=== PATIENT | male | born 1965 | race Caucasian/White ===

== ENCOUNTER 2016-11-21 05:20 | Inpatient (IN) | payer BC ==
[2016-11-20 09:54] VITALS: BMI 27.7
--- NOTE | 2016-11-20 17:29 | PREOPHP ---
DATE OF ADMISSION: 11/21/2016 Patient to have surgery with Dr. Jorge Leo on 11/21/2016. REASON FOR CONSULTATION: Consultation requested by Dr. Jorge Leo for medical evaluation and clearance of a 51-year-old gentleman about to undergo surgery for degenerative joint disease of his right hip. Thank you, Dr. Leo, for participating in the care of our patient. HISTORY OF PRESENT ILLNESS: Maico Blanco is a 51-year-old gentleman who recently had total shoulder replacement on the left, currently being admitted for a total hip replacement on the right side He did have an ACL repair on the right side as well, and his left hip replaced. His right hip has been bothering him and he being admitted for symptomatic right hip degenerative joint disease. He has had no prior medical hospitalizations. He has fractured a wrist, but does not remember which one. ALLERGIES: ALLERGIC TO NO MEDICATIONS, HAS NO KNOWN ALLERGIES. MEDICATIONS Takes no chronic medications. SOCIAL HISTORY: The patient is single, has 3 children. Does not smoke. Alcohol socially. Does drink coffee. 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 FAMILY HISTORY: Father is 77. Mother is 74. Father has hypertension. Mother is healthy. Two sisters are in good health. There is remote history of diabetes and hypertension. No heart, cancer or stroke. REVIEW OF SYSTEMS HEENT: Denies any significant headaches. CARDIORESPIRATORY: Denies any chest pain or shortness of breath. GASTROINTESTINAL: No melena or hematemesis. GENITOURINARY: No urgency, frequency. MUSCULOSKELETAL: Positive for right hip pain. NEUROPSYCHIATRIC: Unremarkable. GENERAL HEALTH: As above. PHYSICAL EXAMINATION: VITAL SIGNS: The patient's blood pressure was 130/80, pulse 60 and regular, respirations 18, temperature 98, height 5 feet 11 inches, weight 194 pounds. GENERAL: The patient was noted to be a well-developed, well-nourished male in no apparent acute distress, oriented to time, place, and person. HEAD, EARS, EYES, NOSE AND THROAT: Head was atraumatic. Eyes: Pupils were equal, reactive to light and accommodation. Fundi were benign. Tympanic membranes were unremarkable. Nose was negative. Mouth was unremarkable. Fair oral hygiene was present. NECK: Supple without any rigidity. Trachea was midline. Thyroid was unremarkable. Neck veins were flat. Carotid pulses were equal. BACK: Unremarkable. CHEST: Symmetrical. BREASTS AND AXILLARY: Did not reveal any masses. LUNGS: Clear to percussion and auscultation. HEART: PMI is fifth intercostal space at the midclavicular line. Regular sinus rhythm was noted. No significant murmurs, rubs, or gallops being elicited. ABDOMEN: Soft, good bowel sounds were noted. No significant organomegaly, masses, or tenderness. GENITALIA: Normal male external genitalia. RECTAL AND PROSTATIC: Exam per PCP. EXTREMITIES: Not revealing clubbing, edema or cyanosis. Scar was noted the in left shoulder ____ from prior shoulder replacement, peripheral pulses were physiologic. SKIN: Moist and warm without any eruptions. No gross lymphadenopathy was noted. NEUROLOGIC: Grossly intact. IMPRESSION: 1. Degenerative joint disease, right hip. 2. Status post total hip replacement on the left. 3. Status post total shoulder replacement on the left. 4. Degenerative joint disease. 5. Stable health. DISCUSSION: Review of laboratory and other data revealed the following: The patient's chemistries including electrolytes, glucose, BUN and creatinine and liver function tests were normal. The patient's CBC, UA, PT, PTT, bladder scan , EKG and chest x-ray were normal. His EKG revealed some nonspecific changes which were unchanged from prior EKG without any acute changes. His x-ray was negative as well. Dr. Leo, I see no contraindication in this patient undergoing current proposed surgery under desired form of anesthesia and will be more than happy to follow him along with you during his stay at [facility]. Thank you again, Dr. Leo, for allowing us to participate in the care of this patient. Dictated By: JOSH AREVALO MD SS/NTS Conf#: [id number] DID#: [id number] CC: JORGE LEO MD;*EndCC* MTDD
[~2016-11-21] VITALS: Ht 180.3 cm; Wt 88.2 kg
[2016-11-21] VITALS (30 sets, daily range): BP systolic 81–109; BP diastolic 36–58; PULSE 52–76; RESP 11–20; Ht 180.3 cm; Wt 88.2 kg
[2016-11-21] MEDS ORDERED: VANCOMYCIN 1 GM (PMX) 250 ML IVPB ONE (06:00)
[2016-11-21] MEDS ORDERED: oxyCODONE (CR) 10 MG TAB [oxyCONTIN] PO ONE (06:00)
[2016-11-21] MEDS ORDERED: TRANEXAMIC ACID IVPB ONE (06:00)
[2016-11-21] MEDS ORDERED: ONDANSETRON 4 MG INJ IV ONE (06:00)
[2016-11-21] MEDS ORDERED: DEXAMETHASONE 4 MG/ML 1 ML INJ IV ONE (06:00)
[2016-11-21] MEDS ORDERED: LACTATED RINGER'S 1,000 ML IV* SCH (06:00)
[2016-11-21] MEDS ORDERED: CELECOXIB 200 MG CAP PO ONE (06:00)
[2016-11-21] MEDS ORDERED: ACETAMINOPHEN 1000MG/100ML IV 100 ML IVPB ONE (06:00)
[2016-11-21] MEDS ORDERED: LANSOPRAZOLE 30 MG CAP PO ONE (06:00)
[2016-11-21] MEDS ORDERED: SOD CHLORIDE 0.9% IVPB ONE (06:00)
[2016-11-21] MEDS ORDERED: EPHEDrine SULFATE 50 MG/5 ML SYG ONE (07:00)
[2016-11-21] MEDS ORDERED: GELATIN SIZE 100 SPONGE ONE (07:19)
[2016-11-21] MEDS ORDERED: HEPARIN 1000 UNITS/ML 10 ML INJ ONE (07:20)
[2016-11-21] MEDS ORDERED: VANCOMYCIN 1 GM INJ ONE (07:20)
[2016-11-21] MEDS ORDERED: POLYMYXIN B 500000 UNIT INJ ONE (07:20)
[2016-11-21] MEDS ORDERED: ROPIVACAINE 0.2% 100ML BAG ONE (07:20)
[2016-11-21] MEDS ORDERED: MIDAZOLAM 1 MG/ML 2 ML INJ ONE (07:34)
[2016-11-21] MEDS ORDERED: morphine SULFATE/PF (10 MG/10 ML) INJ ONE (07:53)
[2016-11-21] MEDS ORDERED: ROCURONIUM 50 MG INJ ONE ×2 (07:53→10:28)
[2016-11-21] MEDS ORDERED: PROPOFOL 40 ML ONE (07:53)
[2016-11-21] MEDS ORDERED: ROPIVACAINE 0.2% 20 ML VIAL ONE ×2 (07:57→09:27)
[2016-11-21] MEDS ORDERED: TRANEXAMIC ACID IRR SCH ×2 (08:00)
[2016-11-21] MEDS ORDERED: HIP PAIN COCKTAIL VANCO INJ SCH ×7 (08:00)
[2016-11-21] MEDS ORDERED: SOD CHLORIDE 0.9% IRR SCH ×2 (08:00)
[2016-11-21] MEDS ORDERED: PHENYLephrine (100 MCG/ML) 5ML SYG ONE (08:22)
[2016-11-21] MEDS ORDERED: HYDROCODONE/APAP (5/325) TAB PO PRN (09:00)
[2016-11-21] MEDS ORDERED: morphine 4 MG/ML VIAL IV PRN (09:00)
[2016-11-21] MEDS ORDERED: HYDROmorphONE 1 MG/ML SYG IV PRN ×2 (09:00)
[2016-11-21] MEDS ORDERED: NALBUPHINE HCL (10 MG/1 ML) INJ IV PRN (09:00)
[2016-11-21] MEDS ORDERED: ACETAMINOPHEN 500 MG TAB PO PRN (09:00)
[2016-11-21] MEDS ORDERED: EPHEDrine SULFATE 50 MG/5 ML SYG IV PRN (09:00)
[2016-11-21] MEDS ORDERED: DIPHENHYDRAMINE 50 MG INJ IV PRN ×2 (09:00)
[2016-11-21] MEDS ORDERED: NALOXONE (0.4 MG/ML) INJ IV PRN ×2 (09:00→12:30)
[2016-11-21] MEDS ORDERED: morphine 2 MG INJ IV PRN (09:00)
[2016-11-21] MEDS ORDERED: MEPERIDINE 25 MG INJ IV PRN (09:00)
[2016-11-21] MEDS ORDERED: ZOLPIDEM 5 MG TAB PO PRN ×2 (09:00→12:30)
[2016-11-21] MEDS ORDERED: BACITRACIN 50000 UNITS INJ IRR ONE (09:09)
[2016-11-21] MEDS ORDERED: POLYMYXIN B 500000 UNIT INJ IRR ONE (09:09)
[2016-11-21] MEDS ORDERED: VANCOMYCIN 1 GM INJ IRR ONE (09:09)
[2016-11-21] MEDS ORDERED: hydrALAzine 20 MG INJ ONE (09:26)
[2016-11-21] MEDS ORDERED: ONDANSETRON 4 MG INJ ONE (10:25)
[2016-11-21] MEDS ORDERED: DEXAMETHASONE 4 MG/ML 1 ML INJ ONE (10:25)
[2016-11-21] MEDS ORDERED: ACETAMINOPHEN 1000MG/100ML IV 100 ML ONE (10:25)
[2016-11-21] MEDS ORDERED: METOCLOPRAMIDE 10 MG INJ ONE (10:25)
[2016-11-21] MEDS ORDERED: KETOROLAC 30 MG INJ ONE (10:25)
[2016-11-21] MEDS ORDERED: FAMOTIDINE 20 MG INJ ONE (10:25)
[2016-11-21] MEDS ORDERED: NEOSTIGMINE 3 MG/3 ML SYRINGE ONE (11:39)
[2016-11-21] MEDS ORDERED: GLYCOPYRROLATE 1 MG INJ ONE (11:39)
[2016-11-21] MEDS ORDERED: CEFAZOLIN 1 GM/50 ML (PMX) 50 ML IVPB ONE (12:29)
[2016-11-21] MEDS ORDERED: ASPIRIN (EC) 325 MG TAB PO ONE ×2 (12:29→12:30)
[2016-11-21] MEDS: ONDANSETRON 4 MG INJ IV SCH ×2 (12:30→17:53)
[2016-11-21] MEDS ORDERED: DOCUSATE SODIUM 100 MG CAP PO ONE ×2 (12:30)
[2016-11-21] MEDS ORDERED: MAGNESIUM HYDROXIDE 30ML CUP PO PRN (12:30)
[2016-11-21] MEDS ORDERED: BETHANECHOL 25 MG TAB PO PRN (12:30)
[2016-11-21] MEDS ORDERED: MEPERIDINE 10 MG/ML 30 ML PCA IV PRN (12:30)
[2016-11-21] MEDS ORDERED: SENNA/DOCUSATE NA (8.6MG/50MG) TAB PO PRN (12:30)
[2016-11-21] MEDS ORDERED: DIPHENHYDRAMINE 50 MG INJ IM PRN (12:30)
[2016-11-21] MEDS ORDERED: oxyCODONE 5 MG TAB PO PRN ×2 (12:30)
[2016-11-21] MEDS ORDERED: NA PHOSPHATE/BIPHOS 133 ML ENEMA PR PRN (12:30)
[2016-11-21] MEDS ORDERED: HYDROmorphONE 0.2 MG/ML PCA IV PRN (12:30)
[2016-11-21] MEDS ORDERED: BISACODYL 10 MG SUPP PR PRN (12:30)
[2016-11-21] MEDS: ONDANSETRON 4 MG INJ IV PRN ×2 (12:37→12:38)
[2016-11-21] MEDS: CEFAZOLIN 1 GM/50 ML (PMX) 50 ML IVPB SCH ×2 (12:58→20:56)
[2016-11-21] MEDS: DOCUSATE SODIUM 100 MG CAP PO SCH (13:27)
--- NOTE | 2016-11-21 13:40 | RADRPT ---
PROCEDURE: Intraoperative imaging of the right hip with fluoroscopy. CLINICAL INDICATION: Right hip pain. Intraoperative. TECHNIQUE: 7 images of the right hip were obtained in the operating room with an image intensifier . No radiologist was in attendance. 0.6 minutes of fluoroscopy time was used. COMPARISON: No prior study is available for comparison. FINDINGS: Images demonstrate placement of a total right hip arthroplasty. Incidental note is also made of a le ft hip hemiarthroplasty which was present at the beginning of the procedure. IMPRESSION: 1. Satisfactory intraoperative imaging of the right hip. RPTAT: QQ .Jaxon Jaquez MD, Date Time Electronically viewed and signed by .Jaxon Jaquez MD, on 11/21/2016 13:40 .R/
--- NOTE | 2016-11-21 13:41 | RADRPT ---
PROCEDURE: XR Right Hip. CLINICAL INDICATION: Right hip pain. Postop. TECHNIQUE: Single frontal view. COMPARISON: Intraoperative imaging done earlier the same day. FINDINGS: There is a right hip total arthroplasty. This appears satisfactory with no fracture, dislocation or loosening. There is no lytic lesion. Right lateral skin lesa and surgical drains are noted. There is gas in the soft tissues from the recent surgery. IMPRESSION: 1. Satisfactory postoperative appearance of the right hip. RPTAT: QQ .Jaxon Jaquez MD, Date Time Electronically viewed and signed by .Jaxon Jaquez MD, on 11/21/2016 13:40 .R/
--- NOTE | 2016-11-21 13:42 | RADRPT ---
PROCEDURE: XR Left Hip. CLINICAL INDICATION: Left hip pain. Postop. TECHNIQUE: Single frontal view. COMPARISON: 09/04/2016. FINDINGS: There is a left hip hemiarthroplasty as seen previously. This appears satisfactory with no fracture , dislocation or loosening. There is no lytic lesion. The soft tissues are normal. IMPRESSION: 1. Satisfactory postoperative appearance of the left hip. RPTAT: QQ .Jaxon Jaquez MD, MD Date Time Electronically viewed and signed by .Jaxon Jaquez MD, on 11/21/2016 13:41 .R/
--- NOTE | 2016-11-21 13:50 | CONS ---
DATE OF ADMISSION: 11/21/2016 DATE OF CONSULTATION: 11/21/2016 TYPE OF CONSULTATION: Postoperative consult followup. The patient had surgery with Dr. Jorge Leo on 11/21/2016. Patient seen in the recovery horacio approximately 1:05 p.m. HISTORY OF PRESENT ILLNESS: Patient is alert, looking around, answering questions appropriately, se ems comfortable, no major issues at this point. VITAL SIGNS: The patient's blood pressure is 96/57, pulse 68, respirations 16, O2 saturation 97% on room air. The patient was afebrile, temperature 99.4. HEENT: Unremarkable. LUNGS: Clear. HEART: Reveals a regular rhythm. ABDOMEN: Unremarkable. IMPRESSION: 1. Status post total hip replacement on the right. 2. Prior total hip replacement on the left and total shoulder replacement on the left and stable he alth. DISCUSSION: Plan is to monitor his blood pressure is somewhat low, which is not unusual postoperati vely. We will monitor and may need fluid replacement should this persists postoperatively. Patient is on no chronic medications and generally should do well. Thank you again, Dr. Leo, for allowing us to participate in the care of this patient. Dictated By: JOSH CASTREJON/GREG Conf#: [id number] DID#: [id number]
[2016-11-21] MEDS: DEXTROSE 5%-LR 1,000 ML IV SCH (14:27)
[2016-11-21] MEDS: ACETAMINOPHEN 1000MG/100ML IV 100 ML IVPB SCH (16:19)
--- NOTE | 2016-11-21 16:30 | OPR ---
DATE OF OPERATION: 11/21/2016 PREOPERATIVE DIAGNOSIS: Exceedingly severe degenerative osteoarthritis of the right hip. POSTOPERATIVE DIAGNOSIS: Exceedingly severe degenerative osteoarthritis of the right hip. SURGEON: PIPER TOVAR MD. ANESTHESIOLOGIST: ____ IMPROVEMENT COORDINATOR: ____ OPERATION PERFORMED: Right total hip replacement by the anterior route. Computer-assisted surgery using the Project Manager digital imaging computer. FINDINGS AT SURGERY: The patient was found to have exceedingly severe degenerative osteoarthritis o f the right hip. The patient's bone quality was excellent as expected for a man of his age. The fe moral head had no normal-appearing articular cartilage. The patient's bone quality was satisfactory for a female of her age. JUSTIFICATION FOR SURGERY: Patient has endstage osteoarthritis of the right hip. There can be no s cientific expectation that any further conservative measures would give this patient any relief from her incapacitating pain. DESCRIPTION OF PROCEDURE: The patient was given intravenous antibiotics approximately 1 hour prior to surgery. An epidural anesthetic was initiated in the preanesthesia area. The patient was then m stephane to the operating room and transferred to a Underwood table. General anesthesia was induced with int ubation and full muscle paralysis. Plain and digital x-rays were obtained of the pelvis and the ope rative hip and stored in the computer. Measurements were made on the operative hip to determine the degree of leg length and offset. The intent was to use the operative hip as the basic template for restoring the geometry of the operative hip (i.e., the opposite hip was not used as the template). On the pelvic x-ray, the correct orientation of the pelvis for surgery was determined. Note that [employer] computer was used throughout for making all leg length and angular measurements. The operative thigh, leg and lower abdomen were prepared and draped in the usual sterile fashion. A n oblique incision was made over the lateral aspect of the right thigh. Incision commenced 3 cm dis jatinder and 3 cm posterior to the anterior superior iliac spine. The total length of the incision was a pproximately 100 mm long. The incision was deepened through the subcutaneous fat to expose the fasc ia over the tensor muscle. The fascia was opened to expose the muscle. Bleeding points were cauter ized throughout by diathermic coagulation. The fascia over the tensor was incised by blunt and digi jatinder resection. The interval was found between the tensor muscle and the anterior capsule as well as the rectus muscle. Superior and inferior cobra retractors were now placed outside the capsule to e xpose the anterior surface of the capsule. A third cobra retractor was placed over the brim of the pelvis. The reflected head of rectus was first elevated with a Garrido elevator. The anterior capsule was incised along the length of the intratrochanteric line with the hip externa lly rotated. The incision extended around the proximal femur to the lesser trochanter. The incisio n was now extended vertically to the edge of the acetabulum. The capsular incision was extended johnson ng the anteromedial extent of the anterior rim of the acetabulum. A cobra retractor was placed insi de the capsule medially. The lateral aspect of the anterior capsule was incised and a second cobra retractor was placed inside the capsule around the superior femoral neck. Three turns of traction were placed on the operative leg. The femoral head was now freed from the a cetabulum using a skid. The remaining superior and anterior capsule was incised and the femoral nec k was then incised. A corkscrew was inserted into the femoral head from the anterior aspect of the femoral head. Using the corkscrew as a handle and using a skid, the hip was now completely dislocat ed. The hip was reduced. An osteotomy of the femoral neck was made at the location determined by preope rative templating. The femoral head was now removed. By suitable retraction, the acetabulum was exposed. Soft tissues around the folia removed. The paz tabulum was enlarged and deepened to 53 mm. The last acetabular reamings were inserted under fluoro scopic control and the correct orientation of the socket and if the reaming were determined by the [employer] computer and direct x-ray visualization. The acetabular component was now installed with an orientation of 39 degrees of abduction and 20 degrees of anteversion. The [employer] Discovery was used for making these measurements. The proximal femur was now exposed by hyperextending and adducting the hip joint. A retractor was p laced posterior to the femoral neck so as to retract the proximal femur laterally. A hook was then placed around the proximal femur deep to the tensor muscle and as proximal as possible. The hook wa s attached to the table dawit and the femur was elevated as high as we could go without force being a pplied to the femur. The superior and proximal femoral capsules were now incised. The cobra retractor was placed behind the posterior rim of the acetabulum. A Steinmann pin was driven into the pelvis superior to the paz tabulum to retract the soft tissues. A third cobra was placed over the rim of the acetabulum and th e fourth cobra was placed along the medial aspect of the acetabulum. This allowed further mobilizat ion of the proximal femur. A canal finder was used to find the canal. The proximal femur is now br oached starting with the smallest broach and progressively increasing until we felt we could go no f urther. At this point, the size 12 broach was left in place and the hip was reduced. X-rays were [place] and these x-rays showed that we could broach up 1 more size. The hip was reduced with the shor test femoral head and neck assembly and measurements were made to determine what neck lengths and of fset changes were still needed. The hip was dislocated. The next size broach (size 13) was now installed. This broach was found to be completely stable. The hip was reduced using the +1.5 mm femoral head and neck assembly and the size 12 broach. Measurements indicated that the leg lengths and offset appear to be unchanged. Th is was felt to be an appropriate combination. This showed that the hip was totally stable in the an terior aspect of the socket. The hip was now put through a full range of motion after disconnecting the foot from the table and this showed that the hip was totally stable in all limits of motion exc ept for extreme flexion in which case the hip started to sublux posteriorly. For this reason, a 10 degree lip was selected for the socket and the high point was set posteriorly. As trial components were removed, the permanent plastic acetabular component was installed. This wa s followed by installing the permanent femoral component. The table was now returned to a neutral p osition and the hip was dislocated. The wound was frequently irrigated throughout the procedure wit h normal saline containing antibiotics using pulsatile lavage. The permanent femoral component was installed, it fit perfectly and appeared to be completely stable . The permanent femoral head was installed and the hip was reduced. Superficial and deep Hemovac drains were placed. Soft tissues around the hip were injected with a m ixture of Naropin, Toradol, morphine and clonidine for pain management. The deep tissues were now c losed using interrupted Vicryl. The subcutaneous tissues were closed using a Quill type stitch. Th e skin was closed using lesa. The usual sterile dressings were applied and an abduction pillow was placed between the patient's le gs before transferring her to a gurney. The patient returned to the recovery room in stable conditi on. There were no problems or complications throughout this operation as far as is known. Although multiple x-rays were taken in the operating room and saved, the permanent x-ray record was obtained in the recovery room to be sure that the hip did not dislocate in transfer. IMPLANT COMPONENT INFORMATION: Femoral component: 15 size, Corail size KA 13. Acetabular component: 54 mm [place] with Gription. Femoral head size: 36 mm. Femoral neck size: +1.5 mm. Implant divorce attorney: [employer] of [place], [place]. Leg length: As measured with a My[employer] computer was 1 mm shorter than the starting length and was m edialized 1.1 mL compared to the starting offset. Reinfusion was used. The total blood loss was approximately 600 mL and reinfusion was 350 mL. Dictated By: PIPER CALDWELL/GREG Conf#: [id number] DID#: [id number]
[2016-11-22] MEDS: ACETAMINOPHEN 1000MG/100ML IV 100 ML IVPB SCH ×4 (00:21→23:10)
[2016-11-22] MEDS: ONDANSETRON 4 MG INJ IV SCH ×2 (00:21→05:46)
[2016-11-22] MEDS: DEXTROSE 5%-LR 1,000 ML IV SCH ×2 (00:22→13:25)
[2016-11-22 00:27] VITALS: BP 120/60; PULSE 54; RESP 18
[2016-11-22 05:35] LABS: BASOPHILS % 0.3 % (0.0-2.0); EOSINOPHILS % 0.1 % (0.0-7.0); HEMOGLOBIN 12.4 g/dl (14.0-18.0); LYMPHOCYTES # 1.3 10^3/ul (0.8-2.9); LYMPHOCYTES % 9.3 % (15.0-51.0); MEAN CORPUSCULAR HEMOGLOBIN 32.1 pg (29.0-33.0); MEAN CORPUSCULAR HGB CONC 34.3 g/dl (32.0-37.0); MEAN CORPUSCULAR VOLUME 93.8 fl (82.0-101.0); MEAN PLATELET VOLUME 7.6 fl (7.4-10.4); MONOCYTE # 1.1 10^3/ul (0.3-0.9); MONOCYTES % 7.5 % (0.0-11.0); NEUTROPHIL # 11.6 10^3/ul (1.6-7.5); NEUTROPHILS % 82.8 % (39.0-77.0); PLATELET COUNT 193 10^3/UL (140-440); RED BLOOD COUNT 3.84 10^6/ul (4.70-6.10); RED CELL DISTRIBUTION WIDTH 13.2 % (11.5-14.5)
[2016-11-22] MEDS: PANTOPRAZOLE (EC) 40 MG TAB PO SCH (05:48)
[2016-11-22] MEDS: CEFAZOLIN 1 GM/50 ML (PMX) 50 ML IVPB SCH (05:48)
[2016-11-22] MEDS ORDERED: BUPIVACAINE 0.25%/EPI (SDV) 30 ML INJ INJ PRN (06:00)
[2016-11-22] MEDS ORDERED: KETOROLAC 30 MG INJ INJ PRN (06:00)
[2016-11-22 06:03] LABS: CONDITION 1
[2016-11-22] MEDS: DEXAMETHASONE 4 MG/ML 1 ML INJ IV SCH (06:26)
[2016-11-22 08:02] VITALS: BP 107/54; PULSE 61; RESP 17
[2016-11-22] MEDS: CELECOXIB 200 MG CAP PO SCH ×2 (08:53→21:09)
[2016-11-22] MEDS: DOCUSATE SODIUM 100 MG CAP PO SCH ×2 (08:54→21:10)
[2016-11-22] MEDS: ASPIRIN (EC) 325 MG TAB PO SCH ×2 (08:54→21:08)
[2016-11-22] MEDS: FERROUS FUMARATE (SR) TAB PO SCH ×2 (08:54→21:09)
[2016-11-22 09:06] LABS: ADD UMIC YES; URINE BILIRUBIN (Dip) NEGATIVE (NEGATIVE); URINE BLOOD (Dip) NEGATIVE (NEGATIVE); URINE COLOR YELLOW (YELLOW); URINE GLUCOSE (Dip) NEGATIVE (NEGATIVE); URINE KETONES (Dip) NEGATIVE (NEGATIVE); URINE LEUKOCYTE ESTERASE (Dip) NEGATIVE (NEGATIVE); URINE NITRITE (Dip) NEGATIVE (NEGATIVE); URINE TOTAL PROTEIN (Dip) TRACE (NEGATIVE); URINE UROBILINOGEN (Dip) 0.2 E.U./dL (0.1-1.0)
[2016-11-22 09:30] LABS: SQUAMOUS EPITHELIAL CELL,UR RARE; URINE RBCS 0-2 /HPF (0)
--- NOTE | 2016-11-22 11:25 | PN ---
Date/Time of Note Date/Time of Note DATE: 11/22/16 TIME: 11:23 Assessment/Plan Lines/Catheters IV Catheter Type (from Nrsg): Peripheral IV Ewing in Place (from Nrsg): Yes Assessment/Plan Assessment/Plan POD # 1. Stable. -Drains removed -OOB with PT -Pain meds -ASA/SCDs -Pain cocktail administered -Possible d/c to home tomorrow Subjective 24 Hr Interval Summary Doing well. Minimal pain. Exam/Review of Systems Vital Signs Vitals Vital Signs Date Time Temp Pulse Resp B/P Pulse Ox O2 Delivery O2 Flow Rate FiO2 11/22/16 08:02 98.6 61 17 107/54 99 Room Air 11/21/16 11:54 8.0 Intake and Output 11/21/16 11/21/16 11/22/16 15:00 23:00 07:00 Intake Total 1668 ml 900 ml 1680 ml Output Total 1100 ml 430 ml 830 ml Balance 568 ml 470 ml 850 ml Exam Free Text/Dictation Dressing dry Incision clean, dry, and intact without redness or drainage Thigh soft 5/5 Quadriceps, Tibialis Anterior, EHL, Gastroc Soleus, Peroneals Normal sensation Palpable DP/PT, CR < 2 Sec No distal edema Results Result Diagram: 11/22/16 0450 SANDEEP BLAIR MD Nov 22, 2016 11:25
[2016-11-22 21:05] VITALS: BP 123/56; PULSE 56; RESP 18
[2016-11-23 05:17] LABS: BASOPHILS % 0.3 % (0.0-2.0); EOSINOPHILS # 0.1 10^3/ul (0.0-0.5); EOSINOPHILS % 0.9 % (0.0-7.0); HEMOGLOBIN 11.4 g/dl (14.0-18.0); LYMPHOCYTES # 2.2 10^3/ul (0.8-2.9); LYMPHOCYTES % 25.6 % (15.0-51.0); MEAN CORPUSCULAR HEMOGLOBIN 32.3 pg (29.0-33.0); MEAN CORPUSCULAR HGB CONC 34.6 g/dl (32.0-37.0); MEAN CORPUSCULAR VOLUME 93.4 fl (82.0-101.0); MEAN PLATELET VOLUME 7.5 fl (7.4-10.4); MONOCYTE # 0.8 10^3/ul (0.3-0.9); MONOCYTES % 8.9 % (0.0-11.0); NEUTROPHIL # 5.5 10^3/ul (1.6-7.5); NEUTROPHILS % 64.3 % (39.0-77.0); PLATELET COUNT 162 10^3/UL (140-440); RED BLOOD COUNT 3.53 10^6/ul (4.70-6.10); UNCORRECTED WBC 8.5 10^3/ul (4.8-10.8); WHITE BLOOD COUNT 8.5 10^3/ul (4.8-10.8)
[2016-11-23] MEDS: PANTOPRAZOLE (EC) 40 MG TAB PO SCH (06:28)
[2016-11-23] MEDS: DEXAMETHASONE 4 MG/ML 1 ML INJ IV SCH (06:28)
[2016-11-23 06:39] LABS: CONDITION 1
[2016-11-23 08:00] VITALS: BP 123/67; RESP 19
--- NOTE | 2016-11-23 08:30 | CONS ---
Date/Time of Note Date/Time of Note DATE: 11/23/16 TIME: 08:28 Assessment/Plan Assessment/Plan Problems: (1) Aftercare following right hip joint replacement surgery Status: Acute Comment: He is stable postoperatively and doing quite well. His pain is well controlled. At this time as per orthopedist he is able to be discharged to home care. (2) Osteoarthritis of right hip Status: Chronic Comment: This should now be improved nicely and ultimately will be resolved. Qualifiers: Osteoarthritis type: primary Qualified Code: M16.11 - Primary osteoarthritis of right hip Consultation Date/Type/Reason Admit Date/Time Nov 21, 2016 at 05:20 Initial Consult Date 11/21/2016 Type of Consultation: Internal medicine Reason for Consultation Medical follow-up. Referring Provider: PIPER TOVAR MD 24 HR Interval Summary Free Text/Dictation Lamonte 51-year-old male lying in bed. He reports he is doing well and is anxious to go home. He reports he has been ambulating to the bathroom Constitutional: no complaints Detailed Summary ENT: no complaints Respiratory: no complaints Cardiovascular: no complaints Gastrointestinal: no complaints Genitourinary: no complaints Musculoskeletal: bone/joint pain (Modest pain well-controlled at site of surgery) Neurologic: no complaints Exam/Review of Systems Vital Signs Vitals Vital Signs Date Time Temp Pulse Resp B/P Pulse Ox O2 Delivery O2 Flow Rate FiO2 11/22/16 21:05 98.3 56 18 123/56 98 Room Air 11/21/16 11:54 8.0 Intake and Output 11/22/16 11/22/16 11/23/16 14:59 22:59 06:59 Intake Total 1500 ml 1150 ml Output Total 1400 ml Balance 1500 ml -250 ml Exam Constitutional: alert, oriented Neck: non-tender, supple Respiratory: clear to auscultation, normal air movement Cardiovascular: nl pulses, regular rate and rhythm Gastrointestinal: nl liver, spleen, non-tender, soft Neurological: CELLOPHANE BATH MIXER II-XII intact, nl mental status, nl speech, nl strength Results Result Diagram: 11/23/16 0445 Results 24 hrs Laboratory Tests Test 11/23/16 04:45 Basophils # 0.0 Basophils % 0.3 Eosinophils # 0.1 Eosinophils % 0.9 Hematocrit 33.0 L Hemoglobin 11.4 L Lymphocytes # 2.2 Lymphocytes % 25.6 Mean Corpuscular Hemoglobin 32.3 Mean Corpuscular Hemoglobin Concent 34.6 Mean Corpuscular Volume 93.4 Mean Platelet Volume 7.5 Monocytes # 0.8 Monocytes % 8.9 Neutrophils # 5.5 Neutrophils % 64.3 Nucleated Red Blood Cells # 0.0 Nucleated Red Blood Cells % 0.0 Platelet Count 162 Red Blood Count 3.53 L Red Cell Distribution Width 13.0 White Blood Count 8.5 # Medications Medications Current Medications Oxycodone HCl (Roxicodone) 20 mg Q3H PRN PO PAIN LEVEL 8-10; Start 11/21/16 at 12:30 Oxycodone HCl (Roxicodone) 10 mg Q3H PRN PO PAIN LEVEL 4-7; Start 11/21/16 at 12:30 Zolpidem Tartrate (Ambien) 5 mg HS PRN PO INSOMNIA; Start 11/21/16 at 12:30 Aspirin (Ecotrin) 325 mg BID PO Last administered on 11/22/16at 21:08; Admin Dose 325 MG; Start 11/22/16 at 09:00 Celecoxib (Celebrex) 200 mg BID PO Last administered on 11/22/16at 21:09; Admin Dose 200 MG; Start 11/22/16 at 09:00 Dexamethasone (Decadron) 4 mg DAILY@07 IV Last administered on 11/23/16 06:28; Admin Dose 4 MG; Start 11/22/16 at 07:00; Stop 11/25/16 at 06:59 Pantoprazole (Protonix Tab) 40 mg DAILY@06 PO Last administered on 11/23/16 06: 28; Admin Dose 40 MG; Start 11/22/16 at 06:00 Docusate Sodium/ Ferrous Fumarate (Hayden-Sequels) 1 tab BID PO Last administered on 11/22/16at 21:09; Admin Dose 1 TAB; Start 11/22/16 at 09:00 Docusate Sodium (Colace) 200 mg BID PO Last administered on 11/22/16at 21:10; Admin Dose 200 MG; Start 11/22/16 at 09:00; Stop 11/24/16 at 21:01 Simethicone (Mylicon) 80 mg TID PRN PO DISTENSION/GAS/BLOATING; Start at 12:30 Senna/Docusate Sodium (Senokot-S) 2 tab BID PRN PO CONSTIPATION; Start at 12:30 Magnesium Hydroxide (Milk Of Mag) 30 ml HS PRN PO CONSTIPATION; Start at 12:30 Bisacodyl (Dulcolax Supp) 10 mg DAILY PRN [place] CONSTIPATION; Start 11/21/16 at 12:30 Sodium Biphosphate/ Sodium Phosphate (Fleet Enema) 133 ml DAILY PRN [place] CONSTIPATION; Start 11/21/16 at 12:30 Diphenhydramine HCl (Benadryl) 25 mg Q4H PRN IM ITCHING OR RASH; Start at 12:30 Ketorolac Tromethamine (Toradol) 30 mg DAILY@06 PRN INJ ADMINSTER BY SURGEON ONLY; Start 11/22/16 at 06:00; Stop 11/26/16 at 05:59 Bupivacaine HCl/ Epinephrine Bitart (Marcaine 0.25%/ Epi (Sdv) 30 ml) 20 ml DAILY@06 PRN INJ ADMINSTER BY SURGEON ONLY; Start 11/22/16 at 06:00; Stop 11/26 at 05:59 Naloxone HCl (Narcan) 0.2 mg Q2M PRN IV DECREASED REPIRATORY RATE; Start at 12:30 SCOTTY SULLIVAN MD Nov 23, 2016 08:30
[2016-11-23] MEDS: FERROUS FUMARATE (SR) TAB PO SCH (08:55)
[2016-11-23] MEDS: CELECOXIB 200 MG CAP PO SCH (08:55)
[2016-11-23] MEDS: ACETAMINOPHEN 1000MG/100ML IV 100 ML IVPB SCH (08:55)
[2016-11-23] MEDS: DOCUSATE SODIUM 100 MG CAP PO SCH (08:55)
[2016-11-23] MEDS: ASPIRIN (EC) 325 MG TAB PO SCH (08:55)
[2016-11-23 10:00] VITALS: BP 123/56; PULSE 56; RESP 18
--- NOTE | 2016-11-23 11:13 | PN ---
Date/Time of Note Date/Time of Note DATE: 11/23/16 TIME: 11:12 Assessment/Plan Lines/Catheters IV Catheter Type (from Nrsg): Saline Lock Ewing in Place (from Nrsg): No Assessment/Plan Assessment/Plan POD # 2. Stable. -D/C to home -Pain meds -E.C. ASA 325 mg po bid -Home PT -F/u with Dr. Leo in 1 week Subjective 24 Hr Interval Summary Doing well. Wants to go home. Minimal pain. Exam/Review of Systems Vital Signs Vitals Vital Signs Date Time Temp Pulse Resp B/P Pulse Ox O2 Delivery O2 Flow Rate FiO2 11/23/16 10:00 98.3 56 18 123/56 98 11/22/16 21:05 Room Air 11/21/16 11:54 8.0 Intake and Output 11/22/16 11/22/16 11/23/16 15:00 23:00 07:00 Intake Total 1500 ml 1150 ml Output Total 1400 ml Balance 1500 ml -250 ml Exam Free Text/Dictation Dressing dry Incision clean, dry, and intact without redness or drainage Thigh soft 5/5 Quadriceps, Tibialis Anterior, EHL, Gastroc Soleus, Peroneals Normal sensation Palpable DP/PT, CR < 2 Sec No distal edema Results Result Diagram: 11/23/16 0445 SANDEEP BLAIR MD Nov 23, 2016 11:13
[2016-11-23] MEDS ORDERED: ASPI325T32 PO (11:14)
[2016-11-23] MEDS ORDERED: HYDR-906 PO (11:56)
--- NOTE | 2016-11-23 22:39 | CONS ---
Date/Time of Note Date/Time of Note DATE: 11/23/16 TIME: 22:36 Consultation Date/Type/Reason Admit Date/Time Nov 21, 2016 at 05:20 Initial Consult Date 11/21/16 Type of Consultation: Internal medicine Reason for Consultation Anesthesia for THR Referring Provider: PIPER TOVAR MD 24 HR Interval Summary Free Text/Dictation 51 year old male went under General/Epidural anesthesia for Right Total Hip Replacement Anterior Approach. Epidural Duramorph was given for post operative pain control. Patient tolerated the procedure well and surgery was uneventful. No motor or sensory deficit. No apnea noted. vital signs were stable and he is been afebrile. Pain is well controlled. no nausea or vomiting reported. Primary team will follow him up. Exam/Review of Systems Vital Signs Vitals Vital Signs Date Time Temp Pulse Resp B/P Pulse Ox O2 Delivery O2 Flow Rate FiO2 11/23/16 10:00 98.3 56 18 123/56 98 11/22/16 21:05 Room Air 11/21/16 11:54 8.0 Intake and Output 11/22/16 11/22/16 11/23/16 14:59 22:59 06:59 Intake Total 1500 ml 1150 ml Output Total 1400 ml Balance 1500 ml -250 ml Results Result Diagram: 11/23/16 0445 Results 24 hrs Laboratory Tests Test 11/23/16 04:45 Basophils # 0.0 Basophils % 0.3 Eosinophils # 0.1 Eosinophils % 0.9 Hematocrit 33.0 L Hemoglobin 11.4 L Lymphocytes # 2.2 Lymphocytes % 25.6 Mean Corpuscular Hemoglobin 32.3 Mean Corpuscular Hemoglobin Concent 34.6 Mean Corpuscular Volume 93.4 Mean Platelet Volume 7.5 Monocytes # 0.8 Monocytes % 8.9 Neutrophils # 5.5 Neutrophils % 64.3 Nucleated Red Blood Cells # 0.0 Nucleated Red Blood Cells % 0.0 Platelet Count 162 Red Blood Count 3.53 L Red Cell Distribution Width 13.0 White Blood Count 8.5 # SAMIA LANDEROS MD Nov 23, 2016 22:39
== END 2016-11-23 12:10 | disposition home health service (06) | DRG 470 ==
LOC: REC 05:20 → MS1 13:04
PROC: 0SR902A Replacement of Right Hip Joint with Metal on Polyethylene Synthetic Substitute, Uncemented, Open Approach (ICD-10-PCS; principal; 2016-11-21 08:00)
DX: M16.11 Unilateral primary osteoarthritis, right hip (principal); Z96.642 Presence of left artificial hip joint; Z96.612 Presence of left artificial shoulder joint
CPT/HCPCS: 73500; 73530; 81001; 81003; 85025; 86850; 86900; 86901; 86920; 87086; 88304; 88311; 97001; 97116; 97530; C1776; J0131; J0171; J0360; J0690; J0735; J1100; J1644; J1885; J2250; J2274; J2370; J2405; J2710; J2765; J2795; J3010; J3370; J7121

== ENCOUNTER → 2016-12-16 | Outpatient (CLI) | payer BC ==
[~2016-12-16] MED LIST: ASPI325T32 PO; HYDR-906 PO
--- NOTE | 2016-12-17 05:34 | HKNOTE ---
DATE OF SERVICE: 12/16/16 THREE WEEK POSTOPERATIVE CLINIC NOTE HISTORY OF PRESENT ILLNESS: This is a 51-year-old male who presents today for a 3-week postoperative visit for right total hip replacement that was performed on 11/21/2016. The patient states that he has been doing great status post surgery. The patient was up and walking on the day of surgery. The patient states that after postoperative day 1, he experienced no pain. The patient continues to experience no pain as he is very pleased with the surgery. The patient is walking independently without ambulatory device. No radiating symptoms. Wound has been healing well with no complications. The patient does have mild discomfort along the IT band with physical therapy, but other than that, the patient states that he has been doing well and feels like he is back to normal. PHYSICAL EXAMINATION: Right hip: Wound to the right hip is clean, dry and intact and healing well. Well-healed surgical scar. Mild numbness surrounding the surgical wound on palpation. The patient has full flexion and extension of the right hip status post surgery. There is 5/5 strength to the extensors and flexors of the right hip. There is 5/5 strength to the abductors and adductors of the right hip. No pain with internal and external rotation. The patient also feels that leg length is equal with no discomfort. ASSESSMENT AND PLAN: 1. The patient is doing extremely well status post surgery with no complaints as he feels back to normal. 2. Continue with physical therapy. The patient was advised to avoid stressful activity/high intensity activity such as sports, running on a treadmill or increased weightbearing such as squats as the patient is very athletic and has athletic build. 3. Dental prophylaxis/antibiotic prophylaxis discussed with patient today. 4. No signs of DVT or infection. 5. Continue DVT prophylaxis with aspirin for additional 3 weeks. 6. Continue hip precautions for an additional 3 weeks. 7. The patient will follow up for 6 week postoperative visit. 8. Xrays to the Right hip on 6 week post-op appointment. Dictated By: JEREMY MONTELONGO for PIPER TOVAR MD, KP/GREG Conf#: [id number] DID#: [id number] JUAN
== END | disposition home or self-care (01) ==
LOC: HKI 13:42
DX: Z47.1 Aftercare following joint replacement surgery (principal); Z96.641 Presence of right artificial hip joint
CPT/HCPCS: G0463

== ENCOUNTER → 2017-01-06 | Outpatient (CLI) | payer BC ==
--- NOTE | 2017-01-06 17:47 | HKNOTE ---
DATE OF SERVICE: 01/06/2017 SUBJECTIVE: A 51-year-old male who presents today for postoperative visit in regards to right total hip replacement performed on 11/21/2016. The patient has no pain complaints to the right hip. The patient was up and walking independently the following day. Since the surgery, patient states that he has had no need to use assisted ambulatory device. Since patient was last seen, he has developed back aches/tightness to the right-sided lumbar paraspinal muscle groups. He has had massage therapy which has alleviated tightness. Patient continues walking at extended amounts, better variable but denies any complications or limitations. The patient has recently returned to the gym, but denies any high intensity activity or heavy weightbearing. No falls. OBJECTIVE: VITAL SIGNS: Blood pressure is 126/74, temperature 98 degrees, pulse is 57, respiratory rate is 12, height is 5 feet 11 inches, weight is 190 pounds. GENERAL: Gait is normal and nonantalgic. Full range of motion at 0 to 140 degrees to the right hip. No pain complaints. 5/5 strength to the hip flexors and extensors as well as abductors and abductors. Normal sensory examination to light touch. Surgical wound is well healed. No calf pain. IMAGING: X-ray to the right hip on 01/06/2017 showing all components appearing well aligned and the prosthesis is well attached and integrated to the bone. No signs of any lucency between metal and bone. ASSESSMENT AND PLAN: 1. Antibiotics card given today. 2. Discontinue restrictions, status post hip surgery. 3. Continue with activity but it was advised to avoid high intensity activity such as sports. 4. Dr. Tovar was present during the examination. He has recommended cobalt chromium levels for left-sided previous hip replacement as it is metal-on -metal. 5. Antibiotics card/dental prophylaxis discussed. Discontinuing restrictions. 6. Patient will follow up at 6 months postop visit. 7. If he continues to do well, likely discharge from active care at that time. Patient may also discontinue DVT prophylaxis. Dictated By: JEREMY MONTELONGO for PIPER TOVAR MD, KP/GREG Conf#: [id number] DID#: [id number] [facility]
--- NOTE | 2017-01-07 14:49 | RADRPT ---
PROCEDURE: XR Right hip and pelvis. CLINICAL INDICATION: Right hip pain. Pelvic pain. Postop. TECHNIQUE: Two views. Frontal pelvis and lateral right hip. COMPARISON: 11/21/2016. FINDINGS: There is no fracture or dislocation. The soft tissues are normal. There is a right hip total arthroplasty which appears satisfactory. There is a left hip arthroplasty as seen previously. There is no lytic or blastic lesion. The upper pelvis is not completely included on the image. IMPRESSION: 1. Satisfactory postoperative appearance of both hips. 2. No evidence of prosthetic loosening. RPTAT: QQ .Jaxon Jaquez MD, MD Date Time Electronically viewed and signed by .Jaxon Jaquez MD, on 01/07/2017 14:48 .R/
== END | disposition home or self-care (01) ==
LOC: HKI 13:52
DX: Z47.1 Aftercare following joint replacement surgery (principal); Z96.641 Presence of right artificial hip joint
CPT/HCPCS: 73502